=== PATIENT | male | born 1960 | race Caucasian/White ===

== ENCOUNTER 2016-06-27 18:33 | Emergency (ER) | payer OTHER ==
[~2016-06-27] VITALS: Ht 180.3 cm; Wt 72.0 kg
[~2016-06-27 18:33] MED LIST: OMEP20TA PO
[2016-06-27 18:35] VITALS: BP 106/56; PULSE 90; RESP 18; TEMP 98.2; O2SAT 95
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
[2016-06-27] MEDS ORDERED: TETANUS/DIPHTHERIA TOXOID ADULT 0.5 ML VIAL IM ONE (19:30)
[2016-06-27] MEDS ORDERED: VENTAER INH (20:15)
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
[2016-06-27] MEDS ORDERED: IBUP-232 PO (21:04)
== END 2016-06-27 21:32 | disposition home or self-care (01) ==
LOC: NEPE 18:33
DX: S09.90XA Unspecified injury of head, initial encounter (principal); S40.021A Contusion of right upper arm, initial encounter; S20.219A Contusion of unspecified front wall of thorax, initial encounter; S20.229A Contusion of unspecified back wall of thorax, initial encounter; S30.0XXA Contusion of lower back and pelvis, initial encounter; S80.02XA Contusion of left knee, initial encounter; S00.81XA Abrasion of other part of head, initial encounter; F17.200 Nicotine dependence, unspecified, uncomplicated; Y04.2XXA Assault by strike against or bumped into by another person, initial encounter; Z23 Encounter for immunization; Z86.59 Personal history of other mental and behavioral disorders; Z86.79 Personal history of other diseases of the circulatory system; Z87.09 Personal history of other diseases of the respiratory system
CPT/HCPCS: 70450; 71010; 72072; 72100; 73060; 73560; 90471; 90714

== ENCOUNTER 2016-09-12 21:47 | Emergency (ER) | payer OTHER ==
[~2016-09-12] VITALS: Ht 180.3 cm; Wt 65.0 kg
[~2016-09-12 21:47] MED LIST changes: +IBUP-232 PO; +VENTAER INH
[2016-09-12 22:14] VITALS: BP 145/85; PULSE 98; RESP 16; TEMP 98.5; O2SAT 97
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
[2016-09-12 23:18] VITALS: BP 117/76; PULSE 88; RESP 20; O2SAT 99
[2016-09-12 23:38] LABS: AUTOMATED NEUTROPHIL # 3.7 TH/MM3 (1.8-7.7); BASOPHIL % 0.7 % (0.0-2.0); EOSINOPHIL # 0.1 TH/MM3 (0-0.4); EOSINOPHIL % 1.2 % (0.0-4.0); HEMATOCRIT 43.8 % (39.0-51.0); HEMO FLAGS DIFF FINAL; LYMPH % 36.4 % (9.0-44.0); LYMPHOCYTE # 2.6 TH/MM3 (1.0-4.8); MEAN CORPUSCULAR HEMOGLOBIN 31.1 PG (27.0-34.0); MEAN CORPUSCULAR HGB CONC 33.8 % (32.0-36.0); MONO % 9.8 % (0.0-8.0); NEUT % 51.9 % (16.0-70.0); PLATELET COUNT 214 TH/MM3 (150-450); RED BLOOD COUNT 4.76 MIL/MM3 (4.50-5.90); RED CELL DISTRIBUTION WIDTH 13.9 % (11.6-17.2); WHITE BLOOD COUNT 7.2 TH/MM3 (4.0-11.0)
[2016-09-12 23:44] LABS: ANION GAP 9 MEQ/L (5-15); AST (GOT) 28 U/L (15-37); BICARBONATE 25.7 MEQ/L (21.0-32.0); BLOOD UREA NITROGEN 9 MG/DL (7-18); CHLORIDE 104 MEQ/L (98-107); GLOMERULAR FILTRATION RATE 92 ML/MIN (>89); POTASSIUM 3.7 MEQ/L (3.5-5.1); SODIUM (NA) 139 MEQ/L (136-145)
[2016-09-12 23:45] LABS: ALT (GPT) 38 U/L (12-78)
[2016-09-12 23:47] LABS: ALKALINE PHOSPHATASE 75 U/L (45-117); TOTAL BILIRUBIN ADULT 0.7 MG/DL (0.2-1.0)
[2016-09-13 00:37] LABS: AMPHETAMINE, URINE NEG (NEG); BARBITURATES, URINE NEG (NEG); COCAINE, URINE NEG (NEG)
[2016-09-13 03:23] VITALS: BP 112/70; PULSE 80; RESP 20; O2SAT 98
[2016-09-13 07:14] VITALS: BP 130/69; PULSE 71; RESP 18; O2SAT 98
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
== END 2016-09-13 10:38 | disposition home or self-care (01) ==
LOC: NEPD 21:47
DX: F10.229 Alcohol dependence with intoxication, unspecified (principal); Y90.6 Blood alcohol level of 120-199 mg/100 ml; F31.9 Bipolar disorder, unspecified; J44.9 Chronic obstructive pulmonary disease, unspecified; Z59.0 Homelessness; F17.210 Nicotine dependence, cigarettes, uncomplicated
CPT/HCPCS: 80053; 80307; 85025; 99284

== ENCOUNTER 2017-03-21 12:30 | Emergency (ER) | payer OTHER ==
[~2017-03-21] VITALS: Ht 180.3 cm; Wt 75.0 kg
[~2017-03-21 12:30] MED LIST changes: -OMEP20TA PO; +OMEP20TA93 PO
[2017-03-21 12:40] VITALS: BP 144/79; PULSE 83; RESP 15; TEMP 98.7; O2SAT 98
[2017-03-21 13:13] LABS: BASOPHIL # 0.1 TH/MM3 (0-0.2); BASOPHIL % 0.8 % (0.0-2.0); EOSINOPHIL % 0.7 % (0.0-4.0); HEMOGLOBIN 15.7 GM/DL (13.0-17.0); LYMPH % 29.1 % (9.0-44.0); LYMPHOCYTE # 2.1 TH/MM3 (1.0-4.8); MEAN CELL VOLUME 95.4 FL (80.0-100.0); MEAN CORPUSCULAR HEMOGLOBIN 32.5 PG (27.0-34.0); MEAN CORPUSCULAR HGB CONC 34.1 % (32.0-36.0); MONO % 13.9 % (0.0-8.0); NEUT % 55.5 % (16.0-70.0); PLATELET COUNT 256 TH/MM3 (150-450); RED BLOOD COUNT 4.82 MIL/MM3 (4.50-5.90); RED CELL DISTRIBUTION WIDTH 14.1 % (11.6-17.2); WHITE BLOOD COUNT 7.1 TH/MM3 (4.0-11.0)
[2017-03-21] MEDS ORDERED: RESP: ALBUTEROL 2.5 MG/IPRATROPIUM 0.5 MG NEB (SCH) INH ONE (13:30)
[2017-03-21 13:47] LABS: ALBUMIN 3.4 GM/DL (3.4-5.0); ALKALINE PHOSPHATASE 69 U/L (45-117); ALT (GPT) 40 U/L (12-78); AST (GOT) 28 U/L (15-37); BICARBONATE 25.9 MEQ/L (21.0-32.0); BLOOD UREA NITROGEN 6 MG/DL (7-18); CALCIUM 8.6 MG/DL (8.5-10.1); CHLORIDE 111 MEQ/L (98-107); CREATININE 0.69 MG/DL (0.60-1.30); GLOMERULAR FILTRATION RATE 119 ML/MIN (>89); GLUCOSE,RANDOM 99 MG/DL (74-106); SODIUM (NA) 144 MEQ/L (136-145); TOTAL BILIRUBIN ADULT 0.4 MG/DL (0.2-1.0); TOTAL PROTEIN 7.7 GM/DL (6.4-8.2)
[2017-03-21 13:49] LABS: ACETAMINOPHEN LESS THAN 2.0 MCG/ML (10.0-30.0)
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
[2017-03-21 17:24] VITALS: BP 101/72; PULSE 94; RESP 16; O2SAT 100
[2017-03-21 21:54] VITALS: BP 101/60
== END 2017-03-21 22:50 | disposition home or self-care (01) ==
LOC: NEPE 12:30
DX: F10.129 Alcohol abuse with intoxication, unspecified (principal); J44.9 Chronic obstructive pulmonary disease, unspecified; F17.200 Nicotine dependence, unspecified, uncomplicated; Y90.8 Blood alcohol level of 240 mg/100 ml or more
CPT/HCPCS: 80053; 80307; 85025; 99284

== ENCOUNTER 2017-04-30 07:36 | Emergency (ER) | payer OTHER ==
[~2017-04-30] VITALS: Ht 165.1 cm; Wt 70.0 kg
[2017-04-30 07:42] VITALS: BP 126/87; PULSE 84; RESP 16; TEMP 97.7; O2SAT 95
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
[2017-04-30 09:37] LABS: AUTOMATED NEUTROPHIL # 4.2 TH/MM3 (1.8-7.7); BASOPHIL % 0.4 % (0.0-2.0); EOSINOPHIL # 0.1 TH/MM3 (0-0.4); EOSINOPHIL % 1.4 % (0.0-4.0); HEMATOCRIT 43.9 % (39.0-51.0); HEMOGLOBIN 15.2 GM/DL (13.0-17.0); LYMPHOCYTE # 2.2 TH/MM3 (1.0-4.8); MEAN CELL VOLUME 92.4 FL (80.0-100.0); MEAN CORPUSCULAR HEMOGLOBIN 32.1 PG (27.0-34.0); MEAN CORPUSCULAR HGB CONC 34.7 % (32.0-36.0); MEAN PLATELET VOLUME 6.8 FL (7.0-11.0); MONO % 7.6 % (0.0-8.0); MONOCYTE # 0.5 TH/MM3 (0-0.9); NEUT % 59.6 % (16.0-70.0); PLATELET COUNT 272 TH/MM3 (150-450); RED BLOOD COUNT 4.75 MIL/MM3 (4.50-5.90); RED CELL DISTRIBUTION WIDTH 13.7 % (11.6-17.2); WHITE BLOOD COUNT 7.1 TH/MM3 (4.0-11.0)
[2017-04-30 09:59] LABS: ALBUMIN 3.3 GM/DL (3.4-5.0); ALT (GPT) 26 U/L (12-78); AST (GOT) 32 U/L (15-37); BICARBONATE 26.5 MEQ/L (21.0-32.0); BLOOD UREA NITROGEN 6 MG/DL (7-18); CALCIUM 8.3 MG/DL (8.5-10.1); CHLORIDE 110 MEQ/L (98-107); CREATININE 0.74 MG/DL (0.60-1.30); GLOMERULAR FILTRATION RATE 109 ML/MIN (>89); GLUCOSE,RANDOM 86 MG/DL (74-106); SODIUM (NA) 144 MEQ/L (136-145)
[2017-04-30 10:09] LABS: ALKALINE PHOSPHATASE 72 U/L (45-117); TOTAL BILIRUBIN ADULT 0.3 MG/DL (0.2-1.0); TOTAL PROTEIN 7.6 GM/DL (6.4-8.2)
[2017-04-30 11:25] VITALS: BP 150/59; PULSE 83; RESP 18; O2SAT 95
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
--- NOTE | 2017-04-30 16:56 | PD ---
Physical Exam Time Seen by Provider: 16:51 CANDIDA Perez has evaluated the patient, but to Hernandez act and clear patient for discharge. Data Data Last Documented VS Vital Signs Date Time Temp Pulse Resp B/P (MAP) Pulse Ox O2 Delivery O2 Flow Rate FiO2 04/30/17 11:25 83 18 150/59 (89) 95 Room Air 04/30/17 07:42 97.7 Orders Orders Complete Blood Count With Diff (04/30/17 09:04) Comprehensive Metabolic Panel (04/30/17 09:04) Thyroid Stimulating Hormone (04/30/17 09:04) Iv Access Insert/Monitor (04/30/17 09:04) Psych Screen (04/30/17 09:04) Drug Screen, Random Urine (04/30/17 09:04) Alcohol (Ethanol) (04/30/17 09:04) Diet Regular Basic (04/30/17 Lunch) Diet Regular Basic (04/30/17 Dinner) Ed Discharge Order (04/30/17 16:56) Labs Laboratory Tests Test 04/30/17 09:20 White Blood Count 7.1 TH/MM3 Red Blood Count 4.75 MIL/MM3 Hemoglobin 15.2 GM/DL Hematocrit 43.9 % Mean Corpuscular Volume 92.4 FL Mean Corpuscular Hemoglobin 32.1 PG Mean Corpuscular Hemoglobin Concent 34.7 % Red Cell Distribution Width 13.7 % Platelet Count 272 TH/MM3 Mean Platelet Volume 6.8 FL Neutrophils (%) (Auto) 59.6 % Lymphocytes (%) (Auto) 31.0 % Monocytes (%) (Auto) 7.6 % Eosinophils (%) (Auto) 1.4 % Basophils (%) (Auto) 0.4 % Neutrophils # (Auto) 4.2 TH/MM3 Lymphocytes # (Auto) 2.2 TH/MM3 Monocytes # (Auto) 0.5 TH/MM3 Eosinophils # (Auto) 0.1 TH/MM3 Basophils # (Auto) 0.0 TH/MM3 CBC Comment DIFF FINAL Differential Comment Blood Urea Nitrogen 6 MG/DL Creatinine 0.74 MG/DL Random Glucose 86 MG/DL Total Protein 7.6 GM/DL Albumin 3.3 GM/DL Calcium Level 8.3 MG/DL Alkaline Phosphatase 72 U/L Aspartate Amino Transf (AST/SGOT) 32 U/L Alanine Aminotransferase (ALT/SGPT) 26 U/L Total Bilirubin 0.3 MG/DL Sodium Level 144 MEQ/L Potassium Level 3.7 MEQ/L Chloride Level 110 MEQ/L Carbon Dioxide Level 26.5 MEQ/L Anion Gap 8 MEQ/L Estimat Glomerular Filtration Rate 109 ML/MIN Thyroid Stimulating Hormone 3rd Gen 0.576 uIU/ML Ethyl Alcohol Level 322 MG/DL MDM Supervised Visit with ANABELLA: No Narrative Course CANDIDA Coles has evaluated the patient, but to David gamez and clear patient for discharge. Patient contracts safety. Denies suicidal or homicidal ideations. Patient will be provided community resource packet to ANGELINE for follow-up. Has friends and family for support. Patient was medically cleared by alternate provider prior to psych screening. Patient has been evaluated by psychiatry and and is now cleared for discharge. Diagnosis Primary Impression: Homicidal ideations Additional Impression: Alcohol intoxication Qualified Codes: F10.929 - Alcohol use, unspecified with intoxication, unspecified Referrals: MEAGHAN (Out patient) [facility] Primary Care Physician Psychiatrist [facility] Patient Instructions: Abuse of Alcohol (ED), Alcohol Dependence (ED), Alcohol Intoxication (ED), General Instructions Additional Instruction: Contract safety to your self and others Stop drinking alcohol Follow-up with psychiatry Follow-up with primary care provider Follow-up with Manish Perea Return to the emergency department immediately with worsening of symptoms Med/Other Pt SpecificInfo: No Change to Meds, No Meds Exist/No RX given Scripts No Active Prescriptions or Reported Meds Disposition: 01 DISCHARGE HOME Condition: Stable Nancy Vogel Apr 30, 2017 16:56
== END 2017-04-30 19:23 | disposition home or self-care (01) ==
LOC: NEPC 07:36 → NEPJ 19:23
DX: R45.850 Homicidal ideations (principal); F10.129 Alcohol abuse with intoxication, unspecified; F17.210 Nicotine dependence, cigarettes, uncomplicated; F90.9 Attention-deficit hyperactivity disorder, unspecified type; F31.9 Bipolar disorder, unspecified; J44.9 Chronic obstructive pulmonary disease, unspecified; Y90.8 Blood alcohol level of 240 mg/100 ml or more; Z59.0 Homelessness
CPT/HCPCS: 80053; 80307; 84443; 85025; 99283

== ENCOUNTER 2017-05-16 15:18 | Emergency (ER) | payer OTHER ==
[~2017-05-16] VITALS: Ht 167.6 cm; Wt 65.0 kg
[2017-05-16 15:45] VITALS: BP 113/64; PULSE 97; RESP 16; O2SAT 97
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
== END 2017-05-16 18:57 | disposition home or self-care (01) ==
LOC: NEPD 15:18
DX: K52.9 Noninfective gastroenteritis and colitis, unspecified (principal); F10.920 Alcohol use, unspecified with intoxication, uncomplicated; F31.9 Bipolar disorder, unspecified; F41.8 Other specified anxiety disorders; J44.9 Chronic obstructive pulmonary disease, unspecified; F17.210 Nicotine dependence, cigarettes, uncomplicated
CPT/HCPCS: 99281

== ENCOUNTER 2017-05-28 22:11 | Emergency (ER) | payer OTHER ==
[~2017-05-28] VITALS: Ht 177.8 cm; Wt 60.0 kg
[2017-05-28 22:21] VITALS: BP 105/62; PULSE 81; RESP 18; TEMP 97.7; O2SAT 100
== END 2017-05-28 23:42 | disposition left against medical advice (07) ==
LOC: PHED 22:11
DX: R11.0 Nausea (principal); Z53.21 Procedure and treatment not carried out due to patient leaving prior to being seen by health care provider
CPT/HCPCS: 99281

== ENCOUNTER 2017-06-16 19:41 | Emergency (ER) | payer OTHER ==
[2017-06-16 20:12] VITALS: BP 116/72; PULSE 89; RESP 16; TEMP 98.3; O2SAT 97
[2017-06-16 21:32] LABS: AUTOMATED NEUTROPHIL # 4.3 TH/MM3 (1.8-7.7); BASOPHIL % 0.2 % (0.0-2.0); EOSINOPHIL # 0.1 TH/MM3 (0-0.4); EOSINOPHIL % 0.8 % (0.0-4.0); HEMATOCRIT 46.6 % (39.0-51.0); HEMOGLOBIN 15.6 GM/DL (13.0-17.0); LYMPH % 32.2 % (9.0-44.0); LYMPHOCYTE # 2.4 TH/MM3 (1.0-4.8); MEAN CELL VOLUME 92.8 FL (80.0-100.0); MEAN CORPUSCULAR HGB CONC 33.4 % (32.0-36.0); MEAN PLATELET VOLUME 7.5 FL (7.0-11.0); MONO % 9.7 % (0.0-8.0); MONOCYTE # 0.7 TH/MM3 (0-0.9); NEUT % 57.1 % (16.0-70.0); PLATELET COUNT 198 TH/MM3 (150-450); RED BLOOD COUNT 5.02 MIL/MM3 (4.50-5.90); RED CELL DISTRIBUTION WIDTH 14.3 % (11.6-17.2); WHITE BLOOD COUNT 7.5 TH/MM3 (4.0-11.0)
[2017-06-16 21:44] LABS: ALBUMIN 4.1 GM/DL (3.4-5.0); AST (GOT) 25 U/L (15-37); BICARBONATE 24.9 MEQ/L (21.0-32.0); BLOOD UREA NITROGEN 16 MG/DL (7-18); CALCIUM 8.6 MG/DL (8.5-10.1); CHLORIDE 104 MEQ/L (98-107); CREATININE 1.02 MG/DL (0.60-1.30); GLOMERULAR FILTRATION RATE 76 ML/MIN (>89); GLUCOSE,RANDOM 92 MG/DL (74-106); SODIUM (NA) 140 MEQ/L (136-145)
[2017-06-16 21:45] LABS: ALT (GPT) 34 U/L (12-78)
[2017-06-16 21:47] LABS: ALKALINE PHOSPHATASE 79 U/L (45-117); TOTAL BILIRUBIN ADULT 0.6 MG/DL (0.2-1.0); TOTAL PROTEIN 8.5 GM/DL (6.4-8.2)
[2017-06-17 00:56] VITALS: BP 134/80; PULSE 86; RESP 14; O2SAT 99
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
[2017-06-17] MEDS ORDERED: LIDOCAINE VISCOUS 2% SOLN 15 ML UDC PO ONE (01:30)
[2017-06-17] MEDS ORDERED: ALUMINUM/MAGNESIUM/SIMETH 30 ML CUP PO ONE (01:30)
== END 2017-06-17 01:46 | disposition home or self-care (01) ==
LOC: NEPC 19:41
DX: R10.13 Epigastric pain (principal); R11.0 Nausea; F17.200 Nicotine dependence, unspecified, uncomplicated
CPT/HCPCS: 80053; 83690; 85025; 99283

== ENCOUNTER 2017-07-11 20:07 | Observation (INO) | payer OTHER ==
[~2017-07-11] VITALS: Ht 182.9 cm; Wt 70.5 kg
[2017-07-11 20:11] VITALS: BP 129/73; PULSE 89; RESP 16; TEMP 98.1; O2SAT 98
[2017-07-11 23:12] VITALS: RESP 15; O2SAT 100
[2017-07-11 23:13] VITALS: BP 119/71; PULSE 83; RESP 15; O2SAT 100
[2017-07-11 23:14] VITALS: BP 109/72; PULSE 84; RESP 15; O2SAT 99
[2017-07-11] MEDS ORDERED: RESP: ALBUTEROL 2.5 MG/IPRATROPIUM 0.5 MG NEB (SCH) NEB ONE (23:15)
[2017-07-11] MEDS ORDERED: SODIUM CHLORIDE 0.9% FLUSH 10 ML FLUSH IVF PRN (23:15)
[2017-07-11] MEDS ORDERED: ASPIRIN 81 MG CHEW TAB PO ONE (23:15)
--- NOTE | 2017-07-11 23:33 | RADRPT ---
EXAM DATE/TIME: 07/11/2017 23:18 [facility] COMPARISON: CHEST SINGLE AP, June 27, 2016, 19:45. INDICATIONS : Chest pain. MEDICAL HISTORY : Chronic obstructive pulmonary disease. SURGICAL HISTORY : None. ENCOUNTER: Initial ACUITY: 1 day PAIN SCORE: 7/10 LOCATION: Bilateral chest FINDINGS: Single AP view of the chest. The lungs are clear. Cardiomediastinal silhouette within normal limits. No evidence of pleural effusion or pneumothorax. CONCLUSION: No acute cardiopulmonary disease identified. Shay Hough MD on July 11, 2017 at 23:31 Board Certified Radiologist. This report was verified electronically.
[2017-07-11 23:39] LABS: AUTOMATED NEUTROPHIL # 5.6 TH/MM3 (1.8-7.7); BASOPHIL % 0.4 % (0.0-2.0); EOSINOPHIL # 0.1 TH/MM3 (0-0.4); EOSINOPHIL % 1.3 % (0.0-4.0); HEMOGLOBIN 14.2 GM/DL (13.0-17.0); LYMPH % 28.8 % (9.0-44.0); LYMPHOCYTE # 2.6 TH/MM3 (1.0-4.8); MEAN CELL VOLUME 89.7 FL (80.0-100.0); MEAN CORPUSCULAR HEMOGLOBIN 31.1 PG (27.0-34.0); MEAN CORPUSCULAR HGB CONC 34.7 % (32.0-36.0); MEAN PLATELET VOLUME 7.6 FL (7.0-11.0); MONO % 7.3 % (0.0-8.0); MONOCYTE # 0.7 TH/MM3 (0-0.9); NEUT % 62.2 % (16.0-70.0); PLATELET COUNT 198 TH/MM3 (150-450); RED BLOOD COUNT 4.58 MIL/MM3 (4.50-5.90); RED CELL DISTRIBUTION WIDTH 13.7 % (11.6-17.2)
[2017-07-11 23:42] LABS: ALBUMIN 3.7 GM/DL (3.4-5.0); ALT (GPT) 28 U/L (12-78); AST (GOT) 32 U/L (15-37); BICARBONATE 24.7 MEQ/L (21.0-32.0); BLOOD UREA NITROGEN 11 MG/DL (7-18); CALCIUM 8.4 MG/DL (8.5-10.1); CHLORIDE 109 MEQ/L (98-107); CREATININE 0.67 MG/DL (0.60-1.30); GLOMERULAR FILTRATION RATE 123 ML/MIN (>89); GLUCOSE,RANDOM 85 MG/DL (74-106); SODIUM (NA) 144 MEQ/L (136-145)
[2017-07-11 23:46] LABS: ALKALINE PHOSPHATASE 63 U/L (45-117); TOTAL BILIRUBIN ADULT 0.6 MG/DL (0.2-1.0); TOTAL PROTEIN 7.5 GM/DL (6.4-8.2); TROPONIN I LESS THAN 0.02 NG/ML (0.02-0.05)
[2017-07-12] VITALS (9 sets, daily range): BP systolic 97–129; BP diastolic 60–83; PULSE 60–78; RESP 16–20; TEMP 98.1–99.2; O2SAT 96–99
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
[2017-07-12] MEDS ORDERED: IOHEXOL 350 MG/ML 50 ML BTL (for Cath Lab) OTHER ONE (00:38)
[2017-07-12] MEDS ORDERED: SODIUM CHLORIDE 0.9% FLUSH 10 ML FLUSH IV FLUSH PRN (00:45)
[2017-07-12 02:59] LABS: TROPONIN I LESS THAN 0.02 NG/ML (0.02-0.05)
[2017-07-12 05:49] LABS: TROPONIN I LESS THAN 0.02 NG/ML (0.02-0.05)
[2017-07-12] MEDS ORDERED: ONDANSETRON HCL 4 MG/2 ML VIAL IV PUSH PRN (07:45)
[2017-07-12] MEDS ORDERED: ACETAMINOPHEN 500 MG CPLT PO PRN (07:45)
[2017-07-12] MEDS ORDERED: NITROGLYCERIN 0.4 MG SL 25 TABS/BTL SL PRN (07:45)
--- NOTE | 2017-07-12 10:19 | HHI.HP ---
HPI Primary Care Physician No Primary Care Physician Chief Complaint Chest pain History of Present Illness 56-year-old male with history of COPD, depression, and current smoker presents the emergency room for further evaluation of chest pain. Onset yesterday afternoon 3:30 PM. Location substernal. Characterized as a sudden "sharp knife " steady pain. No radiation. Associated symptoms including nausea, vomiting nonbloody emesis, dyspnea, and diaphoresis. Endorses her to take a deep breath. Duration "hours." He is unable to recall how long he experienced chest discomfort. Reports falling asleep and waking up chest pain-free. No no precipitating or relieving factors. Similar pain in the past, reports multiple cardiac testing in the past. Currently chest pain-free. Review of Systems General: No fatigue,weakness, fever, chills, recent illness, or change in appetite. Has been in his general state of health. HEENT: No MATHEW, no vision changes, no nasal congestion or drainage, no dysphasia CV: As stated above. No current chest pain or pressure. RESP: No SOB, cough, wheeze, or recent upper respiratory infection. History of COPD, current smoker. GI: No nausea, vomiting, bowel changes, diarrhea, constipation, pain, distention , melena, or blood in the stool. No unintentional weight gain or weight loss. : No dysuria, urgency, frequency EXT: No lower leg edema, no paraesthesias MS: No discomfort, injury, trauma, or change in ROM NEURO: No change in memory, difficulty with balance, LOC, motor/sensory deficits PSYCH: History of depression, no current depression or anxiety, no suicidal ideation SKIN: No rashes, no concerning lesions Past Family Social History Allergies: Coded Allergies: No Known Allergies (Unverified Adverse Reaction, Unknown, 07/11/17) Past Medical History COPD, bipolar, depression Past Surgical History Hernia repair Reported Medications Reported Meds & Active Scripts Active No Active Prescriptions or Reported Medications Active Ordered Medications Current Medications Medications (Trade) Dose Ordered Sig/Geovanni Route Start Time Stop Time Status Last Admin (NS Flush) 2 ml UNSCH PRN IV FLUSH 07/12/17 00:45 (NS Flush) 2 ml BID IV FLUSH 07/12/17 09:00 (Tylenol) 500 mg Q4H PRN PO 07/12/17 07:45 (Zofran Inj) 4 mg Q6H PRN IV PUSH 07/12/17 07:45 (Nitrostat Sl) 0.4 mg Q5M PRN SL 07/12/17 07:45 (Aspirin) 325 mg DAILY PO 07/12/17 09:00 Family History Noncontributory for early onset cardiovascular disease. Social History No known coronary artery disease, hypertension, hyperlipidemia, or diabetes. Current smoker, [id number] history. Drinks8 beers daily. Denies any illegal drug use. Homeless. Single. Reports family lives in [place]. Past cardiac testing Lexiscan 2017 [place], [place] reported to be normal. Sounds as though Nuclear treadmill testing attempting, however changed due to inability to walk. 06/07/15 Lexiscan-no reversible defect seen to suggest acute ischemia. 2014 Cardiac catheterization does not recall physician or name of hospital where catheterization completed. Completed in [place], [place] and reported to be "normal." Physical Exam Vital Signs Vital Signs Date Time Temp Pulse Resp B/P (MAP) Pulse Ox O2 Delivery O2 Flow Rate FiO2 07/12/17 08:24 98.2 73 18 129/83 (98) 98 07/12/17 08:02 98 21 07/12/17 04:04 78 07/12/17 02:02 98.1 76 16 97/60 (72) 96 07/12/17 01:37 07/11/17 23:14 84 15 109/72 (84) 99 Room Air 07/11/17 23:13 83 15 119/71 (87) 100 Room Air 07/11/17 23:12 15 100 Room Air 07/11/17 23:12 100 Room Air 07/11/17 20:11 98.1 89 16 129/73 (91) 98 Physical Exam GENERAL: Alert WN, WD, NAD, pleasant, male who appears older than stated age. HEAD: NC, AT NECK: Supple, no masses, trachea midline CV: RRR, without murmur, rub, gallop, no JVD, S1-S2 no S3-S4. No carotid or femoral bruits. Chest wall nontender with palpation. RESP: Diminished lungs throughout bilateral, no crackles, wheeze, or rhonchi, symmetrical chest rise, nonlabored, able to speak in full sentences ABD: Soft, NT, ND, no masses, positive bowel tones EXT: Pulses +2-4, no dependent edema MS: Normal tone -4 extremities, no obvious deformities, full range of motion NEURO: CN II through CN XII grossly intact, motor strength 5/5 PSYCH: A+O -3, pleasant affect, appropriate speech, mood, insight and judgment SKIN: Normal turgor, normal texture, no lesions, no rashes, even hair distribution Laboratory Laboratory Tests Test 07/11/17 23:15 07/12/17 02:05 07/12/17 05:19 White Blood Count 9.0 Red Blood Count 4.58 Hemoglobin 14.2 Hematocrit 41.0 Mean Corpuscular Volume 89.7 Mean Corpuscular Hemoglobin 31.1 Mean Corpuscular Hemoglobin Concent 34.7 Red Cell Distribution Width 13.7 Platelet Count 198 Mean Platelet Volume 7.6 Neutrophils (%) (Auto) 62.2 Lymphocytes (%) (Auto) 28.8 Monocytes (%) (Auto) 7.3 Eosinophils (%) (Auto) 1.3 Basophils (%) (Auto) 0.4 Neutrophils # (Auto) 5.6 Lymphocytes # (Auto) 2.6 Monocytes # (Auto) 0.7 Eosinophils # (Auto) 0.1 Basophils # (Auto) 0.0 CBC Comment DIFF FINAL Differential Comment Prothrombin Time 10.0 Prothromb Time International Ratio 1.0 Activated Partial Thromboplast Time 24.5 Blood Urea Nitrogen 11 Creatinine 0.67 Random Glucose 85 Total Protein 7.5 Albumin 3.7 Calcium Level 8.4 Alkaline Phosphatase 63 Aspartate Amino Transf (AST/SGOT) 32 Alanine Aminotransferase (ALT/SGPT) 28 Total Bilirubin 0.6 Sodium Level 144 Potassium Level 3.6 Chloride Level 109 Carbon Dioxide Level 24.7 Anion Gap 10 Estimat Glomerular Filtration Rate 123 Total Creatine Kinase 178 160 144 Creatine Kinase MB 2.4 2.3 2.1 Troponin I LESS THAN 0.02 LESS THAN 0.02 LESS THAN 0.02 Result Diagram: 07/11/17 2315 07/11/172314 Imaging Last 48 hours Impressions Chest X-Ray 07/11/177 Signed Impressions: Service Date/Time: Tuesday, July 11, 2017 23:18 - CONCLUSION: No acute cardiopulmonary disease identified. Shay Hough MD Course EKG NSR, no st t segment changes Cappopeye VTE Risk Assessment Caprinkunal VTE Risk Assessment: No/Low Risk (score <= 1) Caprini Risk Assessment Model Point Value = 1 Point Value = 2 Point Value = 3 Point Value = 5 Age 41-60 Minor surgery BMI > 25 kg/m2 Swollen legs Varicose veins or History of unexplained or recurrent spontaneous Oral contraceptives or hormone replacement Sepsis (< 1 month) Serious lung disease, including pneumonia (< 1 month) Abnormal pulmonary function Acute myocardial infarction Congestive heart failure (< 1 month) History of inflammatory bowel disease Medical patient at bed rest Age 61-74 Arthroscopic surgery Major open surgery (> 45 min) Laparoscopic surgery (> 45 min) Malignancy Confined to bed (> 72 hours) Immobilizing plaster cast Central venous access Age >= 75 History of VTE Family history of VTE Factor V Leiden Prothrombin [id number] Lupus anticoagulant Anticardiolipin antibodies Elevated serum homocysteine Heparin-induced thrombocytopenia Other congenital or acquired thrombophilia Stroke (< 1 month) Elective arthroplasty Hip, pelvis, or leg fracture Acute spinal cord injury (< 1 month) Prophylaxis Regimen Total Risk Factor Score Risk Level Prophylaxis Regimen 0-1 Low Early ambulation 2 Moderate Order ONE of the following: *Sequential Compression Device (SCD) *Heparin 5000 units SQ BID 3-4 Higher Order ONE of the following medications: *Heparin 5000 units SQ TID *Enoxaparin/Lovenox 40 mg SQ daily (WT < 150 kg, CrCl > 30 mL/min) *Enoxaparin/Lovenox 30 mg SQ daily (WT < 150 kg, CrCl > 10-29 mL/min) *Enoxaparin/Lovenox 30 mg SQ BID (WT < 150 kg, CrCl > 30 mL/min) AND/OR *Sequential Compression Device (SCD) 5 or more Highest Order ONE of the following medications: *Heparin 5000 units SQ TID (Preferred with Epidurals) *Enoxaparin/Lovenox 40 mg SQ daily (WT < 150 kg, CrCl > 30 mL/min) *Enoxaparin/Lovenox 30 mg SQ daily (WT < 150 kg, CrCl > 10-29 mL/min) *Enoxaparin/Lovenox 30 mg SQ BID (WT < 150 kg, CrCl > 30 mL/min) AND *Sequential Compression Device (SCD) Assessment and Plan Assessment and Plan #1 Chest pain-no chest pain center. Ruled out with 3 sets of EKGs, cardiac enzymes, monitor on telemetry. Seen and evaluated by Dr. Leroy Griggs. Discomfort atypical however due to risk factors of smoking, age, and uncertainty of past coronary findings will proceed with chemical testing this morning. #2 Tobacco use-strongly encouraged and stressed importance of tobacco cessation. Instructed to quit smoking. Ingrid Segovia Jul 12, 2017 10:19
[2017-07-12] MEDS ORDERED: RESP: ALBUTEROL 2.5 MG/3 ML NEB (PRN) NEB (12:00)
[2017-07-12] MEDS: ASPIRIN 325 MG TAB PO SCH (12:24)
[2017-07-12] MEDS: SODIUM CHLORIDE 0.9% FLUSH 10 ML FLUSH IV FLUSH SCH ×2 (12:24→22:13)
[2017-07-12] MEDS ORDERED: REGADENOSON INJ 0.4 MG/5 ML SYR ONE (13:17)
--- NOTE | 2017-07-12 15:33 | RADRPT ---
EXAM DATE/TIME: 07/12/2017 13:13 [facility] COMPARISON: No previous studies available for comparison. INDICATIONS : Mid chest pain with nausea for one day. Angina. DOSE: 25.5 mCi Tc99m Myoview at stress. 8.6 mCi Tc99m Myoview at rest. 0.4 mg Lexiscan STRESS SYMPTOMS: Shortness of breath and flush. EJECTION FRACTION: 60% MEDICAL HISTORY : Chronic obstructive pulmonary disease. SURGICAL HISTORY : Inguinal hernia repair. ENCOUNTER: Initial ACUITY: 1 day PAIN SCALE: 5/10 LOCATION: Midsternal chest TECHNIQUE: The patient underwent pharmacologic stress with infusion of prescribed dose. Continuous ECG tracing was monitored during stress. Gated SPECT imaging was performed after stress and conventional SPECT i maging was performed at rest. The examination was performed on a SPECT/CT scanner, both attenuation and non-corrected datasets were reviewed. FINDINGS: DISTRIBUTION: The maximum perfused segment at stress is in the anterior wall. PERFUSION STUDY: The pattern of perfusion demonstrates a small area of reversibility in the septum. GATED STUDY: There is intact wall motion and thickening without hypokinetic or dyskinetic segments. CONCLUSION: 1. Small area of reversibility in the septum which may represent a small area of ischemia. 2. Normal wall motion with ejection fraction 60%. RISK CATEGORY: Intermediate (1-3% Annual Mortality Rate) Andrews George MD on July 12, 2017 at 15:26 Board Certified Radiologist. This report was verified electronically.
[2017-07-12] MEDS ORDERED: LORazepam 2 MG/ML VIAL IV PUSH PRN ×4 (16:00)
[2017-07-12] MEDS ORDERED: FLUMAZENIL 0.5 MG/5 ML VIAL IV PUSH PRN (16:00)
[2017-07-12] MEDS ORDERED: LORazepam 2 MG TAB PO PRN (16:00)
[2017-07-12] MEDS ORDERED: LORazepam 1 MG TAB PO PRN (16:00)
[2017-07-12] MEDS ORDERED: PILL SPLITTER OTHER PRN (16:30)
--- NOTE | 2017-07-12 16:35 | TR ---
Date Performed: 07/12/2017 Time Performed: 13:34:53 DOCTOR: Leroy Griggs DRUG LIST: CLINICAL HISTORY: ANGINA REASON FOR TEST: Angina REASON FOR ENDING: OBSERVATION: CONCLUSION: Lexiscan stress test was performed under standard four minute protocol. Radionuclid e was injected one minute prior to ending the test. No electrocardiographic abormalities were present to suggest ischemia. Nuclear imaging and interpretation are pending. COMMENTS:
--- NOTE | 2017-07-12 16:42 | EKG ---
Date Performed: 07/12/2017 Time Performed: 05:22:04 PTAGE: 56 years EKG: Sinus rhythm WITH OCCASIONAL ECTOPIC PREMATURE COMPLEXES BORDERLINE ECG PREVIOUS TRACING : 07/12/2017 02.11 Since previous tracing, no significant change noted DOCTOR: Leroy Griggs Interpretating Date/Time 07/12/2017 16:41:51
--- NOTE | 2017-07-12 16:43 | EKG ---
Date Performed: 07/12/2017 Time Performed: 02:11:37 PTAGE: 56 years EKG: Sinus rhythm NORMAL ECG PREVIOUS TRACING : 07/11/2017 23.02 Since previous tracing, no significant change noted DOCTOR: Leroy Griggs Interpretating Date/Time 07/12/2017 16:43:02
--- NOTE | 2017-07-12 16:47 | EKG ---
Date Performed: 07/11/2017 Time Performed: 23:02:56 PTAGE: 56 years EKG: Sinus rhythm NORMAL ECG PREVIOUS TRACING : 04/03/2016 22.37 Since previous tracing, no significant change noted DOCTOR: Leroy Griggs Interpretating Date/Time 07/12/2017 16:45:29
[2017-07-12] MEDS: RESP: ALBUTEROL 2.5 MG/3 ML NEB (SCH) INH ×2 (17:06→21:11)
--- NOTE | 2017-07-12 17:46 | PD.CONS ---
HPI Service [facility] Consult Requested By CANDIDA Brooks Reason for Consult Medical management, abnormal Lexiscan Primary Care Physician No Primary Care Physician Diagnoses: History of Present Illness 56-year-old male with a past medical history significant for COPD, depression, tobacco and alcohol abuse who presents to the emergency department on 07/11. Patient reports that chest pain began yesterday around 3 in the afternoon while he was walking. He reports pain began in his right hand fingers and traveled up the arm and into his chest. He reports that pain initially began as pins and needles until reaching his chest where he describes pain as stabbing. He repots dizziness, diaphoresis, and nausea at the time of the incident. Does not repot any alleviating or aggravating factors. He repots that pain was eventually relieved when he came to the hospital, but is unable to remember when. He states he is a daily smoker, 1PPD, and drinks about 6-8beers daily. Repots testing on his heart done in [place], which involved going through the groin, but patient is unclear as to the specifics of the test. At the time of my examination patient is chest pain free, denies any SOB, cough, or right arm pain. He is resting comfortably in bed watching television. He is aware that he may need cardiac cath and will be NPO after midnight, requesting double portions of food for dinner. Patient is a poor historian. Review of Systems Except as stated in HPI: all other systems reviewed are Neg Past Family Social History Allergies: Coded Allergies: No Known Allergies (Unverified Adverse Reaction, Unknown, 07/11/17) Past Medical History COPD Depression Past Surgical History Hernia repair Reported Medications Reported Meds & Active Scripts Active No Active Prescriptions or Reported Medications Active Ordered Medications Current Medications Medications (Trade) Dose Ordered Sig/Geovanni Route Start Time Stop Time Status Last Admin (NS Flush) 2 ml UNSCH PRN IV FLUSH 07/12/17 00:45 (NS Flush) 2 ml BID IV FLUSH 07/12/17 09:00 07/12/17 12:24 (Tylenol) 500 mg Q4H PRN PO 07/12/17 07:45 (Zofran Inj) 4 mg Q6H PRN IV PUSH 07/12/17 07:45 (Nitrostat Sl) 0.4 mg Q5M PRN SL 07/12/17 07:45 (Aspirin) 325 mg DAILY PO 07/12/17 09:00 07/12/17 12:24 (Albuterol Neb) 2.5 mg Q2HR NEB PRN NEB 07/12/17 12:00 (Folate) 1 mg DAILY PO 07/12/17 16:00 07/17/17 15:59 (Vitamin B1) 100 mg DAILY PO 07/12/17 16:30 (Theragran M Tab) 1 tab DAILY PO 07/12/17 16:00 07/17/17 15:59 (Romazicon Inj) 0.2 mg Q1M PRN IV PUSH 07/12/17 16:00 (Ativan) 1 mg Q4H PRN PO 07/12/17 16:00 (Ativan Inj) 1 mg Q4H PRN IV PUSH 07/12/17 16:00 (Ativan) 2 mg Q2H PRN PO 07/12/17 16:00 (Ativan Inj) 2 mg Q2H PRN IV PUSH 07/12/17 16:00 (Ativan Inj) 2 mg Q1H PRN IV PUSH 07/12/17 16:00 (Ativan Inj) 2 mg Q15M PRN IV PUSH 07/12/17 16:00 (Lopressor) 12.5 mg Q12HR PO 07/12/17 21:00 (Nitroglycerin 2% Oint) 0.5 inch Q6HR TOPICAL 07/12/17 18:00 (Albuterol Neb) 2.5 mg Q6HR NEB INH 07/12/17 16:00 07/12/17 17:06 (Pill Splitter) 1 ea UNSCH PRN OTHER 07/12/17 16:30 Family History Mother: [place], diabetes Father: [place] Brother: Cancer Social History Tobacco: 1 pack per day Alcohol use: 6-8 beers daily, last drink yesterday Illicit drug use: Denies Patient is currently homeless Physical Exam Vital Signs Vital Signs Date Time Temp Pulse Resp B/P (MAP) Pulse Ox O2 Delivery O2 Flow Rate FiO2 07/12/17 16:32 99.2 60 122/60 (80) 96 07/12/17 12:33 98.2 60 20 120/76 (91) 98 07/12/17 08:24 98.2 73 18 129/83 (98) 98 07/12/17 08:02 98 21 07/12/17 08:00 78 07/12/17 04:04 78 07/12/17 02:02 98.1 76 16 97/60 (72) 96 07/12/17 01:37 07/11/17 23:14 84 15 109/72 (84) 99 Room Air 07/11/17 23:13 83 15 119/71 (87) 100 Room Air 07/11/17 23:12 15 100 Room Air 07/11/17 23:12 100 Room Air 07/11/17 20:11 98.1 89 16 129/73 (91) 98 Physical Exam GENERAL: This is a well-developed male who appears order than stated age. In NAD watching TV. SKIN: No rashes. Cool and dry. HEAD: Atraumatic. Normocephalic. EYES: Pupils equal round and reactive. No scleral icterus. No injection or drainage. ENT: Nose without bleeding, purulent drainage. Airway patent. NECK: Trachea midline. No JVD. CARDIOVASCULAR: Regular rate and rhythm without murmurs, gallops, or rubs. RESPIRATORY: Diminished breath sounds throughout. Breath sounds equal bilaterally. No wheezes, rales, or rhonchi. GASTROINTESTINAL: Abdomen soft, non-tender, nondistended. No guarding. Active bowel sounds in all quadrants. MUSCULOSKELETAL: Extremities without clubbing, cyanosis, or edema. No joint tenderness, effusion, or edema noted. No calf tenderness. NEUROLOGICAL: Awake and alert. Cranial nerves II through XII grossly intact. Motor and sensory grossly within normal limits. Five out of 5 muscle strength in all muscle groups. Normal speech. Laboratory Laboratory Tests Test 07/11/17 23:15 07/12/17 02:05 07/12/17 05:19 White Blood Count 9.0 Red Blood Count 4.58 Hemoglobin 14.2 Hematocrit 41.0 Mean Corpuscular Volume 89.7 Mean Corpuscular Hemoglobin 31.1 Mean Corpuscular Hemoglobin Concent 34.7 Red Cell Distribution Width 13.7 Platelet Count 198 Mean Platelet Volume 7.6 Neutrophils (%) (Auto) 62.2 Lymphocytes (%) (Auto) 28.8 Monocytes (%) (Auto) 7.3 Eosinophils (%) (Auto) 1.3 Basophils (%) (Auto) 0.4 Neutrophils # (Auto) 5.6 Lymphocytes # (Auto) 2.6 Monocytes # (Auto) 0.7 Eosinophils # (Auto) 0.1 Basophils # (Auto) 0.0 CBC Comment DIFF FINAL Differential Comment Prothrombin Time 10.0 Prothromb Time International Ratio 1.0 Activated Partial Thromboplast Time 24.5 Blood Urea Nitrogen 11 Creatinine 0.67 Random Glucose 85 Total Protein 7.5 Albumin 3.7 Calcium Level 8.4 Alkaline Phosphatase 63 Aspartate Amino Transf (AST/SGOT) 32 Alanine Aminotransferase (ALT/SGPT) 28 Total Bilirubin 0.6 Sodium Level 144 Potassium Level 3.6 Chloride Level 109 Carbon Dioxide Level 24.7 Anion Gap 10 Estimat Glomerular Filtration Rate 123 Total Creatine Kinase 178 160 144 Creatine Kinase MB 2.4 2.3 2.1 Troponin I LESS THAN 0.02 LESS THAN 0.02 LESS THAN 0.02 Result Diagram: 07/11/175 07/11/172314 Imaging Last Impressions Myocardial Perfusion Scan Nuc Med 07/12/17 0000 Signed Impressions: Service Date/Time: Wednesday, July 12, 2017 13:13 - CONCLUSION: 1. Small area of reversibility in the septum which may represent a small area of ischemia. 2. Normal wall motion with ejection fraction 60%%. RISK CATEGORY: Intermediate (1-3%% Annual Mortality Rate) Andrews George MD Chest X-Ray 07/11/171 Signed Impressions: Service Date/Time: Tuesday, July 11, 2017 23:18 - CONCLUSION: No acute cardiopulmonary disease identified. Shay Hough MD Assessment and Plan Assessment and Plan 56-year-old male with past medical history of COPD, depression, tobacco and alcohol abuse who presents to ED with complaints of chest pain. Atypical chest pain -Admitted to chest pain center for observation -Patient provided with ASA 324 in the ED yesterday, continue ASA 325 daily -Serial enzymes 3 negative. EKG #1 and #2: Normal sinus rhythm, #3 sinus rhythm with occasional ectopic premature complexes -Chest x-ray completed on 07/11 reviewed, negative -Lexiscan completed on 07/12 showing EF 60%, small area of reversibility in the septal wall which may represent a small area of ischemia. -(History of Lexiscan completed on 06/07/15 with no reversible defect seen to suggest ischemia) -Cardiology consult placed for further evaluation and possible intervention -Metoprolol 12.5 mg twice daily, nitroglycerin 0.5 inch every 6 hours -As needed sublingual nitro for chest pain -Hemodynamically stable -N.p.o. after midnight COPD Tobacco abuse -Smoking cessation encouraged. -Albuterol every 6 hours, as needed as needed Alcohol abuse -Discussed with patient the importance of alcohol cessation. Discussed signs and symptoms of delirium tremors - CIWA -Multivitamin and B1 -Seizure precautions DVT prophylaxis-SCD's Discussed with CANDIDA Brooks Marizsa ARNP Jul 12, 2017 17:46
[2017-07-12] MEDS: NITROGLYCERIN 2% OINT 1 GM PACKET TOPICAL SCH (20:08)
[2017-07-12] MEDS: MULTIVITAMINS/MINERALS THERAPEUTIC TAB PO SCH (20:09)
[2017-07-12] MEDS: THIAMINE HCL 100 MG TAB PO SCH (20:09)
[2017-07-12] MEDS: FOLIC ACID 1 MG TAB PO SCH (20:09)
[2017-07-12] MEDS: METOPROLOL TARTRATE 25 MG TAB PO SCH (22:12)
[2017-07-13] MEDS: NITROGLYCERIN 2% OINT 1 GM PACKET TOPICAL SCH ×2 (00:04→05:42)
[2017-07-13 01:09] VITALS: BP 113/67; PULSE 65; RESP 16; TEMP 98.6; O2SAT 98
[2017-07-13 03:55] VITALS: PULSE 50
[2017-07-13] MEDS: RESP: ALBUTEROL 2.5 MG/3 ML NEB (SCH) INH ×2 (04:00→09:15)
[2017-07-13 04:08] VITALS: BP 115/57; PULSE 63; RESP 18; TEMP 98.1; O2SAT 96
--- NOTE | 2017-07-13 07:58 | PD.CONS ---
HPI Consult Requested By Primary Care Physician No Primary Care Physician History of Present Illness 55-year-old male with a past medical history of COPD, depression, substance abuse who presented for chest pain. The patient states that prior to admission he was walking felt some right arm numbness and then a sudden onset of severe chest discomfort. He called 911, states the chest discomfort was improved with medications he received in the ED. No recurrence of chest discomfort throughout admission. He states that he has been having chest discomfort since he was 19. He states he gets episodes like this about every other month. He reports a normal heart catheterization in [place] 3 or 4 years ago and had a negative stress test here in 2016. The patient was admitted to the chest pain center and ruled out with unremarkable serial cardiac enzymes and EKGs, however due to his risk factor regarding strong family history of heart disease and tobacco use a Lexiscan stress test was done which showed a small area reversibility in the septum suggesting ischemia. Review of Systems Negative except as stated in HPI Past Family Social History Allergies: Coded Allergies: No Known Allergies (Unverified Adverse Reaction, Unknown, 07/11/17) Past Medical History COPD Depression Past Surgical History Hernia repair Reported Medications Reported Meds & Active Scripts Active No Active Prescriptions or Reported Medications Active Ordered Medications Current Medications Medications (Trade) Dose Ordered Sig/Geovanni Route Start Time Stop Time Status Last Admin (NS Flush) 2 ml UNSCH PRN IV FLUSH 07/12/17 00:45 (NS Flush) 2 ml BID IV FLUSH 07/12/17 09:00 07/12/17 22:13 (Tylenol) 500 mg Q4H PRN PO 07/12/17 07:45 (Zofran Inj) 4 mg Q6H PRN IV PUSH 07/12/17 07:45 (Nitrostat Sl) 0.4 mg Q5M PRN SL 07/12/17 07:45 (Aspirin) 325 mg DAILY PO 07/12/17 09:00 07/12/17 12:24 (Albuterol Neb) 2.5 mg Q2HR NEB PRN NEB 07/12/17 12:00 (Folate) 1 mg DAILY PO 07/12/17 16:00 07/17/17 15:59 07/12/17 20:09 (Vitamin B1) 100 mg DAILY PO 07/12/17 16:30 07/12/17 20:09 (Theragran M Tab) 1 tab DAILY PO 07/12/17 16:00 07/17/17 15:59 07/12/17 20:09 (Romazicon Inj) 0.2 mg Q1M PRN IV PUSH 07/12/17 16:00 (Ativan) 1 mg Q4H PRN PO 07/12/17 16:00 (Ativan Inj) 1 mg Q4H PRN IV PUSH 07/12/17 16:00 (Ativan) 2 mg Q2H PRN PO 07/12/17 16:00 (Ativan Inj) 2 mg Q2H PRN IV PUSH 07/12/17 16:00 (Ativan Inj) 2 mg Q1H PRN IV PUSH 07/12/17 16:00 (Ativan Inj) 2 mg Q15M PRN IV PUSH 07/12/17 16:00 (Lopressor) 12.5 mg Q12HR PO 07/12/17 21:00 07/12/17 22:12 (Nitroglycerin 2% Oint) 0.5 inch Q6HR TOPICAL 07/12/17 18:00 07/13/17 05:42 (Albuterol Neb) 2.5 mg Q6HR NEB INH 07/12/17 16:00 07/12/17 21:11 (Pill Splitter) 1 ea UNSCH PRN OTHER 07/12/17 16:30 Family History Mother: [place], diabetes Father: [place] Brother: Cancer Social History Tobacco: 1 pack per day Alcohol use: 6-8 beers daily, last drink yesterday Illicit drug use: Denies Physical Exam Vital Signs Vital Signs Date Time Temp Pulse Resp B/P (MAP) Pulse Ox O2 Delivery O2 Flow Rate FiO2 07/13/17 04:08 98.1 63 18 115/57 (76) 96 07/13/17 03:55 50 07/13/17 01:09 98.6 65 16 113/67 (82) 98 07/12/17 20:21 98.3 68 16 124/72 (89) 97 07/12/17 20:00 99 07/12/17 16:32 99.2 60 122/60 (80) 96 07/12/17 12:33 98.2 60 20 120/76 (91) 98 07/12/17 08:24 98.2 73 18 129/83 (98) 98 07/12/17 08:02 98 21 07/12/17 08:00 70 07/12/17 08:00 78 Physical Exam GENERAL: Well-developed well-nourished. In no acute distress. NECK: No carotid bruits. No JVD. CARDIOVASCULAR: Regular rate and rhythm. No murmur appreciated. RESPIRATORY: No accessory muscle use. Clear to auscultation. Breath sounds equal bilaterally. MUSCULOSKELETAL: No clubbing or cyanosis. No edema. NEUROLOGICAL: Awake and alert. Normal speech. Result Diagram: 07/11/17 2315 07/11/175 Imaging Last Impressions Myocardial Perfusion Scan Nuc Med 07/12/17 0000 Signed Impressions: Service Date/Time: Wednesday, July 12, 2017 13:13 - CONCLUSION: 1. Small area of reversibility in the septum which may represent a small area of ischemia. 2. Normal wall motion with ejection fraction 60%%. RISK CATEGORY: Intermediate (1-3%% Annual Mortality Rate) Andrews George MD Chest X-Ray 07/11/17 8085 Signed Impressions: Service Date/Time: Tuesday, July 11, 2017 23:18 - CONCLUSION: No acute cardiopulmonary disease identified. Shay Hough MD Assessment and Plan Assessment and Plan 55-year-old male with a past medical history of COPD, depression, substance abuse who presented for chest pain. Was admitted to the chest pain center and had a positive stress test. Atypical chest pain with positive stress test: Plan for cardiac catheterization today for definitive evaluation. Gold Dumont Jul 13, 2017 07:58
[2017-07-13 08:00] VITALS: BP 143/72; PULSE 60; RESP 16; TEMP 97.8; O2SAT 97
[2017-07-13] MEDS: METOPROLOL TARTRATE 25 MG TAB PO SCH (08:51)
[2017-07-13] MEDS: FOLIC ACID 1 MG TAB PO SCH (08:51)
[2017-07-13] MEDS: THIAMINE HCL 100 MG TAB PO SCH (08:51)
[2017-07-13] MEDS: ASPIRIN 325 MG TAB PO SCH (08:51)
[2017-07-13] MEDS: MULTIVITAMINS/MINERALS THERAPEUTIC TAB PO SCH (08:51)
[2017-07-13] MEDS: SODIUM CHLORIDE 0.9% FLUSH 10 ML FLUSH IV FLUSH SCH (08:51)
--- NOTE | 2017-07-13 09:08 | HHI.PR ---
Subjective Remarks Follow-up for chest pain and abnormal nuclear stress test. Patient denies any further episodes of chest pain overnight. Denies any other medical complaints including no shortness of breath, palpitations, nausea/vomiting, diaphoresis, or fevers/chills. He is going for heart catheterization today. He believes he may have had cardiac catheterization a few years ago in [place], was told that there were some blockages but did not require any angioplasty/stenting. The patient does continue to smoke tobacco. Objective Vitals Vital Signs Date Time Temp Pulse Resp B/P (MAP) Pulse Ox O2 Delivery O2 Flow Rate FiO2 07/13/17 08:00 97.8 60 16 143/72 (95) 97 07/13/17 04:08 98.1 63 18 115/57 (76) 96 07/13/17 03:55 50 07/13/17 01:09 98.6 65 16 113/67 (82) 98 07/12/17 20:21 98.3 68 16 124/72 (89) 97 07/12/17 20:00 99 07/12/17 16:32 99.2 60 122/60 (80) 96 07/12/17 12:33 98.2 60 20 120/76 (91) 98 I/O 07/12/17 07/12/17 07/12/17 07/13/17 07/13/17 07/13/17 07:00 15:00 23:00 07:00 15:00 23:00 Intake Total 950 ml Balance 950 ml Intake Oral 950 ml Result Diagram: 07/11/175 07/11/172314 Imaging Last Impressions Myocardial Perfusion Scan Nuc Med 07/12/17 0000 Signed Impressions: Service Date/Time: Wednesday, July 12, 2017 13:13 - CONCLUSION: 1. Small area of reversibility in the septum which may represent a small area of ischemia. 2. Normal wall motion with ejection fraction 60%%. RISK CATEGORY: Intermediate (1-3%% Annual Mortality Rate) Andrews George MD Chest X-Ray 07/11/174 Signed Impressions: Service Date/Time: Tuesday, July 11, 2017 23:18 - CONCLUSION: No acute cardiopulmonary disease identified. Shay Hough MD Objective Remarks GENERAL: Well-nourished, well-developed middle-aged male patient in NAD. SKIN: Warm and dry. No rash. HEENT: Normocephalic. Atraumatic.Pupils equal and round. Mucous membranes pink and moist. NECK: Trachea midline. CARDIOVASCULAR: Regular rate and rhythm. No murmur appreciated. RESPIRATORY: No accessory muscle use. Clear to auscultation. Breath sounds equal bilaterally. GASTROINTESTINAL: Abdomen soft, non-tender, nondistended. Normoactive bowel sounds x4. MUSCULOSKELETAL: No obvious deformities. Extremities without clubbing, cyanosis , or edema. NEUROLOGICAL: Awake and alert. No obvious cranial nerve deficits. Motor grossly within normal limits. Normal speech. PSYCHIATRIC: Appropriate mood and affect; insight and judgment normal. Procedures 07/13/17 - Cardiac catheterization by Dr. Ramirez Medications and IVs Current Medications Medications (Trade) Dose Ordered Sig/Geovanni Route Start Time Stop Time Status Last Admin (NS Flush) 2 ml UNSCH PRN IV FLUSH 07/12/17 00:45 (NS Flush) 2 ml BID IV FLUSH 07/12/17 09:00 07/13/17 08:51 (Tylenol) 500 mg Q4H PRN PO 07/12/17 07:45 (Zofran Inj) 4 mg Q6H PRN IV PUSH 07/12/17 07:45 (Nitrostat Sl) 0.4 mg Q5M PRN SL 07/12/17 07:45 (Aspirin) 325 mg DAILY PO 07/12/17 09:00 07/13/17 08:51 (Albuterol Neb) 2.5 mg Q2HR NEB PRN NEB 07/12/17 12:00 (Folate) 1 mg DAILY PO 07/12/17 16:00 07/17/17 15:59 07/13/17 08:51 (Vitamin B1) 100 mg DAILY PO 07/12/17 16:30 07/13/17 08:51 (Theragran M Tab) 1 tab DAILY PO 07/12/17 16:00 07/17/17 15:59 07/13/17 08:51 (Romazicon Inj) 0.2 mg Q1M PRN IV PUSH 07/12/17 16:00 (Ativan) 1 mg Q4H PRN PO 07/12/17 16:00 (Ativan Inj) 1 mg Q4H PRN IV PUSH 07/12/17 16:00 (Ativan) 2 mg Q2H PRN PO 07/12/17 16:00 (Ativan Inj) 2 mg Q2H PRN IV PUSH 07/12/17 16:00 (Ativan Inj) 2 mg Q1H PRN IV PUSH 07/12/17 16:00 (Ativan Inj) 2 mg Q15M PRN IV PUSH 07/12/17 16:00 (Lopressor) 12.5 mg Q12HR PO 07/12/17 21:00 07/13/17 08:51 (Nitroglycerin 2% Oint) 0.5 inch Q6HR TOPICAL 07/12/17 18:00 07/13/17 05:42 (Albuterol Neb) 2.5 mg Q6HR NEB INH 07/12/17 16:00 07/13/17 09:15 (Pill Splitter) 1 ea UNSCH PRN OTHER 07/12/17 16:30 A/P Assessment and Plan 56-year-old male with past medical history of COPD, depression, tobacco and alcohol abuse who presents to ED with complaints of chest pain. Atypical chest pain: Initially admitted to chest pain center, ACS ruled out with negative serial cardiac enzymes x3 and EKG without acute ischemic changes; however nuclear stress test showed small area of reversibility in the septal wall, may represent area of ischemia. Patient admitted to hospitalist under observation with cardiology consult. -Continue aspirin, beta felix, nitroglycerin prn -Chest x-ray completed on 07/11 reviewed, negative -Lexiscan completed on 07/12 showing EF 60%, small area of reversibility in the septal wall which may represent a small area of ischemia. -Cardiology consulted, plans for cardiac catheterization today COPD, Tobacco abuse: does not appear to be in exacerbation, O2 sat stable on room air -Smoking cessation encouraged. -Continue Albuterol every 6 hours, as needed Alcohol abuse -Counseled on alcohol cessation. - [facility] protocol -Thiamine/folate/multivitamin -Seizure precautions DVT prophylaxis-SCD's Discharge Planning Going for cardiac catheterization, further disposition to follow. Will discharge if cleared by cardiology. 1205hrs: Patient underwent cardiac catheterization, cleared for discharge by Dr. Ramirez, recommended aspirin and statin. The patient will be discharged home. Discharge patient to home Condition on discharge: Stable Heart Healthy Diet as tolerated Ad Irena activity Rx written: aspirin 81mg daily, lipitor 20mg hs, metoprolol 12.5mg bid Follow-up with primary care physician and cardiology Belgica Peres PA-C Jul 13, 2017 9:08 am
[2017-07-13] MEDS ORDERED: HEPARIN-NS/PF FLUSH BAG 2,000 ML IV FLUSH ONE (11:02)
[2017-07-13] MEDS ORDERED: HEPARIN SODIUM - IV 10,000 UNITS/10 ML VIAL ONE (11:03)
[2017-07-13] MEDS ORDERED: VERAPAMIL HCL 5 MG/2 ML VIAL ONE (11:03)
[2017-07-13] MEDS ORDERED: MIDAZOLAM HCL 2 MG/2 ML VIAL ONE (11:03)
[2017-07-13] MEDS ORDERED: LIDOCAINE HCL 1% PF 30 ML VIAL ONE (11:20)
[2017-07-13] MEDS ORDERED: MISC INFORMATION XX ONE (12:00)
[2017-07-13] MEDS ORDERED: METO25TA3 PO (12:02)
[2017-07-13] MEDS ORDERED: THIA100 PO (12:02)
[2017-07-13] MEDS ORDERED: ECASA81 PO (12:02)
[2017-07-13] MEDS ORDERED: ATOR20TA15 PO (12:02)
--- NOTE | 2017-07-13 12:05 | HHI.DCPOC ---
Discharge Care Plan Diagnosis: (1) Chest pain (2) Alcohol dependence (3) Tobacco abuse (4) COPD (chronic obstructive pulmonary disease) Goals to Promote Your Health * To prevent worsening of your condition and complications * To maintain your health at the optimal level Directions to Meet Your Goals Take your medications as prescribed Follow your dietary instruction Follow activity as directed Keep your appointments as scheduled Take your immunizations and boosters as scheduled If your symptoms worsen call your PCP, if no PCP go to Urgent Care Center or Emergency Room Smoking is Dangerous to Your Health. Avoid second hand smoke Call the 24-hour hour crisis hotline for domestic abuse at Belgica Peres PA-C Jul 13, 2017 12:05
--- NOTE | 2017-07-13 12:08 | MA ---
cc: Wild Ramirez MD DATE: 07/13/2017 INDICATION: Chest pain. PROCEDURES PERFORMED: 1. Fluoroscopy with interpretation. 2. Left heart catheterization. 3. Coronary angiography. METHOD: Risks, benefits and alternatives discussed with the patient. The patient understood and consented to procedure. The patient brought to catheterization lab. Patient placed on the catheterization table. Right wrist was prepped and draped in a sterile fashion. Right wrist anesthetized with 2% lidocaine. Right radial artery was cannulated and a 6 Luxembourgish 7 cm sheath was placed without difficulty. CORONARY ANGIOGRAPHY: 1. Left main coronary is angiographically normal. 2. Left anterior descending coronary artery is angiographically normal. There is a small to moderate sized diagonal branch with about a 40% ostial stenosis. 3. Left circumflex has some mild obtuse marginal branch disease, 30%. 4. Right coronary has 30% stenosis in the proximal mid segment and is tortuous with an anterior takeoff. LEFT HEART CATHETERIZATION: Intraventricular hemodynamics measured at 110/10 mmHg. CONCLUSIONS: 1. Mild nonobstructive coronary disease. 2. Normal left-sided filling pressures. PLAN: We will start the patient on aspirin and statin, but symptoms do not appear to be obstructive coronary disease. The patient is okay for discharge. Follow up with primary care physician. Wild Ramirez MD BHARTI/SB , 11:52 AM , 12:06 PM
--- NOTE | 2017-07-13 12:33 | CATHPROC ---
[employer] [facility] HIS Report Study Information Study Number Admission Scheduled Start Study Start [id number] Jul 12 2017 12:37AM 07/13/2017 Jul 13 2017 10:51AM [place] [facility] Cardiac Catheterization Admit Source Facility Department Emergency department [facility] Physician and Clinical Staff Initial Wild Burroughs Commercial Loan Collection Officer Alex Loyd,RN Commercial Loan Collection Officer Alex Aggarwal,RN Recorder Melonie Denise BSN Scrub Anais Foley RT(R) Procedures Performed Procedure Location (Site) Vessel Name Coronary Angiograms LCA Left Coronary Coronary Angiograms RCA Right Coronary L Heart Cath Equipment Time Software Sales Description Size Mfg Part Number Used/Scraped TRANSDUCER, TRUWAVE [id number] 11:31 [employer] LAWS * Used W/STOCKCOCK *[id number] *[id number] 11:31 [employer] INDUSTRIES PACK, CCL CUSTOM * Used *[id number] 11:31 [employer] SUPPORT, ARTERIAL ADULT 28419 *[id number] Used [id number] 11:31 [employer] PACER PEN, SKIN DUAL W/ RULER * Used *[id number] 11:08 [employer] JR 5.0 DXTERITY CATHETER fr 5 [id number] Used BAND, RADIAL COMPRESSION TR [id number] 11:53 m2fx 24CM Used SHORT 24 *[id number] SHEATH, FR6 RADIAL PRELUDE 11:31 m2fx FR 6 [id number] Used EASE 11CM [id number] 11:31 m2fx WIRE, EXCHANGE 260CM 3MMJ 260CM Used *[id number] 11:31 [employer] OMNIPAQUE, 350 MG, 150ML 150ML [id number] Used [id number] 11:31 [employer] BLANKET,WARM AIR CCL * Used *[id number] Equipment Model, Serial, Lot Number and Expiration Data Description Model Number Serial Number Lot Number Expiration Date JR 5.0 DXTERITY CATHETER [id number] 10-10-2019 History: Current Medications Medication Dosage/Unit Route Frequency Last Date/Time Taken LOPRESSOR 12.5 07/13/2017 ASA 325 07/13/2017 History: Allergies Allergy Reaction No Known Allergies History: Risk Factors Family History of Hypertension Dyslipidemia Previous [place] Previous Heart Failure Premature CAD No No Yes No No Prior Valve Prior PCI Prior PCIDate Prior CABG Surgery No Yes 04/07/2014 No Cerebrovascular Peripheral Artery Chronic Lung On Dialysis Diabetes Disease Disease Disease No No No Yes No History: Risk Factors Selection Items Current Smoker History: Stress Tests Stress or Imaging Studies Performed Yes Standard Exercise Stress Stress Test Result Test Yes Negative Stress Echo No Stress Test SPECT Stress Test SPECT Result Stress Test SPECT Ischemia Risk/Extent Yes Positive Intermediate Stress Test CMR No Cardiac CTA Coronary Calcium Score No No History: [place]/CV Data Previous Cath Date 04/07/2014 History: Other Current Smoker Method Packs a Day Years Used Pack Years Yes Cigarettes 1 37 37 Labs Hgb (g/dl) Hct (%) WBC (l/cumm) Platelets (thousands) 11.60-17.00 35.00-51.00 4.00-11.00 150.00-450.00 14.2 41 9 198 Glucose (mg/dl) BUN (mg/dl) Creatinine (mg/dl) BUN:Creatinine (1:x) 74.00-106.00 7.00-18.00 0.50-1.30 10.00-20.00 85 11 0.6 18.3 Na (meq/l) K (meq/l) 136.00-145.00 3.50-5.10 144 3.6 INR (PTT:PT) 0.90-1.10 1 Troponin I (ng/ml) CPK (u/l) CPK-MB (ng/ML) 0.02-0.05 26.00-308.00 0.50-3.60 0.02 178 2.4 Medication Medication Total Dose (Bolus/Oral) Medication Total Dosage/Unit 1% XYLOCAINE 20 mL FENTANYL 50 mcg HEPARIN 3000 units NTG (IC) 200 mcg VERSED 2 mg Medications (Bolus/Oral) Medication Time Given Dosage/Unit Administered By Reason VERSED 07/13/2017 11:36:47 AM 2 mg Alessia, Alex 2 mg VERSED given in lab by Alex Aggarwal RN in Left Antecubital via Peripheral IV. Ordered by Wild Ramirez. 1% XYLOCAINE 07/13/2017 11:37:25 AM 20 mL Alessia, Alex 20 mL 1% XYLOCAINE given in lab by Alex Aggarwal RN in Right Wrist via Subcutaneous. Ordered by Widl Ramirez. FENTANYL 07/13/2017 11:37:39 AM 50 mcg Alessia, Alex 50 mcg FENTANYL given in lab by Alex Aggarwal RN in Left Antecubital via Peripheral IV. Ordered by Wild Miller. NTG (IC) 07/13/2017 11:40:14 AM 200 mcg Alex Aggarwal 200 mcg NTG (IC) given in lab by Alex Aggarwal RN in Right Radial via Intra-arterial. Ordered by Wild Schwab. HEPARIN 07/13/2017 11:46:40 AM 3000 units Alex Aggarwal 3000 units HEPARIN given in lab by Alex Aggarawl RN in Left Antecubital via Peripheral IV. Ordered by Wild Ramirez. Medication (Drip) Medication Time Given Dosage/Unit Concentration/Unit Diluent (ml) Solution IV Solutions 07/13/2017 11:04:21 AM 50 mL (IV) NaCl .9 IV Solutions given in lab by Alex Loyd RN in Left Antecubital via Peripheral IV. Pump/Drip Flow using NaCl .9 at kvo. Ordered by Wild Ramirez. Initial Case Assessment Cardiovascular HR Rhythm NIBP Chest Pain 63 sr 135/87 0 Edema Present Skin color Skin None Normal Warm Dry Circulatory - Right Pulses Dorsalis Pedis Femoral Radial 2 2 2 Scale (0,1,2,3,4,d) Scale (0,1,2,3,4,d) Neurological State Oriented to time-place- Alert Moves all extremities person Respiration - General Respiration Rate SpO2 (%) O2 (lpm) (B/min) 20 100 0 Final Case Assessment Cardiovascular NIBP Chest Pain 127/94 0 Edema Present Skin color Skin None Normal Warm Dry Circulatory - Right Pulses Dorsalis Pedis Femoral Radial 2 2 2 Scale (0,1,2,3,4,d) Scale (0,1,2,3,4,d) Neurological State Oriented to time-place- Alert Moves all extremities person Respiration - General SpO2 (%) 98 Chronological Log Time Study Chronological Log 11:02:14 Patient arrived via Bed. 11:02:15 Patient Name, D.O.B, / Armband Verified By R.N. 11:02:17 Consent signed by the physician and the patient and verified by the [facility] staff. 11:02:23 Patient has been NPO for More than 6Hrs. 11:02:32 Skin Breakdown- none per patient 11:03:14 Allens test performed on the right radial and ulnar artery. 11:03:29 A # 18 IV was noted in the Antecubital (left). Grade = 0 IV Solutions given in lab by Alex Loyd, RN in Left Antecubital via Peripheral IV. Pump/Drip Flow using NaCl .9 at kvo. 11:04:21 Ordered by Wild Ramirez. 11:04:45 History and physical on the chart or being dictated. 11:04:49 Verbal Stimulation=2 Physical Stimulation=2 Airway=2 Respiration=2 TOTAL=8. (0=absent, 1=li mited, 2=present) Vitals capture started with the following parameters, Patient=Adult, Interval=5 min, Initial Pr xyogza=915 mmHg, 11:15:31 Deflation Rate=5 mmHg, Cuff placed on Left Arm Assessment: Initial Case, HR=63 BPM, Rhythm=sr, QMDY=562/87 mmhg, Chest Pain=0, Edema=None, Col or=Normal, Skin = Warm, Dry 11:15:41 Right Pulses: Gerardo Ped=2, Femoral=2, Radial=2 Neurological: State=Alert, Ox3, LEWIS Respiration: Resp=20 B/min, BqX5=223 %, O2=0 lpm 11:16:08 HR=60 bpm, FGQF=894/87 mmhg, ErY0=900.0 %, Resp=20 B/min, Pain=0, Trudy=10, Gray=2 11:16:32 Right Radial and groin(s) prepped with 2% chlorhexidine, and draped after a 3 min. waiting time. 11:16:56 Reference ECG taken 11:17:25 paged 11:21:07 HR=58 bpm, EPLH=575/78 mmhg, AuF1=832.0 %, Resp=16 B/min, Pain=0, Trudy=10, Gray=2 11:26:06 HR=58 bpm, MYPC=363/79 mmhg, SpO2=99.0 %, Resp=16 B/min 11:27:04 Pressure channel 1 zeroed. 11:28:21 nenita relieved melonie 11:31:05 HR=64 bpm, SPDP=978/81 mmhg, OwU2=921 %, Resp=14 B/min 11:34:03 MD arrived. 11:36:06 HR=64 bpm, NTJR=940/84 mmhg, YtB3=152.0 %, Resp=20 B/min 11:36:47 2 mg VERSED given in lab by Alex Aggarwal RN in Left Antecubital via Peripheral IV. Ordered by Wild Ramirez. Time Out. Correct patient, correct procedure, correct physician, power injector not loaded with contrast with surgical 11:36:58 team present. Time Out Concurred by MD and individual staff in procedure. 11:37:22 Case Start 11:37:25 20 mL 1% XYLOCAINE given in lab by Alex Aggarwal RN in Right Wrist via Subcutaneous. Ordere d by Wild Ramirez. 11:37:39 50 mcg FENTANYL given in lab by Alex Aggarwal RN in Left Antecubital via Peripheral IV. Ord ered by Wild Ramirez. 11:38:02 Access site was Radial Artery. right A SHEATH, FR6 RADIAL PRELUDE EASE 11CM FR 6 was advanced into the Radial (right) using the Desirae fied Seldinger 11:39:52 technique. 11:40:14 200 mcg NTG (IC) given in lab by Alex Aggarwal RN in Right Radial via Intra-arterial. Order ed by Wild Ramirez. 11:41:07 HR=74 bpm, RUVQ=937/81 mmhg, Resp=14 B/min 11:41:31 In the Radial (right) the SHEATH, FR6 RADIAL PRELUDE EASE 11CM FR [address] by Wild Ramirez. A JR 5.0 DXTERITY CATHETER fr 5 was advanced over a wire. OMNIPAQUE, 350 MG, 150ML 150ML was us ed for 11:42:02 injections. Recorded Pressure: LV, HR=79, Condition=Condition 1 11:42:35 (Left Ventricle) LV 106/2/7 Recorded Pressure: LV, Ao, HR=75, Condition=Condition 1 11:42:46 (Left Ventricle) LV 109/1/5, (Aorta) Ao 106/81/93 11:42:56 The RCA was injected and visualized at various angles. OMNIPAQUE, 350 MG, 150ML 150ML used . After removing the current catheter a JL 3.5 INFINITI CATHETER FR 5 was advanced over a WIRE, E XCHANGE 260CM 11:43:43 3MMJ 260CM. 11:45:43 The LCA was injected and visualized at various angles. OMNIPAQUE, 350 MG, 150ML 150ML used . Recorded Pressure: Ao, HR=67, Condition=Condition 1 11:45:53 (Aorta) Ao 111/72/89 11:46:06 HR=71 bpm, UWHE=991/71 mmhg, SpO2=96.0 %, Resp=12 B/min 11:46:40 3000 units HEPARIN given in lab by Alex Aggarwal, RN in Left Antecubital via Peripheral IV. Ordered by Wild Ramirez. 11:47:12 Case End 11:47:32 Catheter was removed 11:49:37 suture removed by Anais 11:51:36 HR=86 bpm, EEUI=718/94 mmhg, SpO2=99.0 %, Resp=15 B/min 11:51:54 Vitals capture stopped. 11:51:59 Sheath removed; pressure applied to access site. Radial Compression Device Used. 11 mLs of air placed in BAND, RADIAL COMPRESSION TR SHORT 24 2 4CM. Affected 11:52:02 hand 99 % O2 saturation. Assessment: Final Case, UIOE=587/94 mmhg, Chest Pain=0, Edema=None, Color=Normal, Skin = Warm, Dry Right Pulses: Gerardo Ped=2, Femoral=2, Radial=2 11:53:04 Neurological: State=Alert, Ox3, LEWIS Respiration: SpO2=98 % 11:54:21 Sterile dressing applied to site 11:54:23 No case complications noted. 11:54:29 Bedside Report will be given. 11:54:33 A Left Heart Cath was performed. 11:55:56 Patient moved to stretcher 11:56:33 Patient transported to DOCU End Study - Contrast Media Used In Study Contrast Total Opened (mL) Total Used (mL) Total Wasted (mL) Omnipaque 40 40 0 End Study - Maximum Contrast Load Max Contrast Load (mL) 587.5 End Study - Radiation Exposure Fluoro Time (minutes) 0.9 End Study - Sheaths Sheaths Pulled By Sheath Hold Time (min) Anais Foley End Study - Patient Disposition Complications Transferred To Interventional Outcome No Telemetry Bed No attempt made
[2017-07-13] MEDS ORDERED: ATORVASTATIN 20 MG TAB PO SCH (21:00)
[2017-07-14] MEDS ORDERED: ASPIRIN EC 81 MG TABEC PO SCH (09:00)
== END 2017-07-13 15:13 | disposition home or self-care (01) ==
LOC: NEPC 20:07 → NEDA 07-12 00:37 → NEPHCDU 07-12 01:33 → HCIS 07-13 11:00
PROVIDERS: ADMIT Hospitalist; ATTEND Hospitalist
DX: R07.89 Other chest pain (principal); I25.10 Atherosclerotic heart disease of native coronary artery without angina pectoris; R07.2 Precordial pain; J44.9 Chronic obstructive pulmonary disease, unspecified; F17.210 Nicotine dependence, cigarettes, uncomplicated; F10.20 Alcohol dependence, uncomplicated; R11.2 Nausea with vomiting, unspecified; R06.00 Dyspnea, unspecified; F32.9 Major depressive disorder, single episode, unspecified; F90.9 Attention-deficit hyperactivity disorder, unspecified type; F41.9 Anxiety disorder, unspecified; Z59.0 Homelessness
CPT/HCPCS: 71045; 78452; 80053; 82550; 82552; 82948; 84484; 85025; 85610; 85730; 93005; 93017; 93458; 94640; 94664; 99152; 99285; A9502; C1769; C1893; G0378; J1644; J2250; J2785; J3010; J7613; Q9967

== ENCOUNTER 2017-09-10 20:50 | Emergency (ER) | payer OTHER ==
[~2017-09-10 20:50] MED LIST changes: +ATOR20TA15 PO; +ECASA81 PO; -IBUP-232 PO; +METO25TA3 PO; -OMEP20TA93 PO; +THIA100 PO; -VENTAER INH
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
[2017-09-10 22:23] VITALS: BP 100/58; PULSE 84; RESP 18; O2SAT 96
[2017-09-10 23:13] LABS: AUTOMATED NEUTROPHIL # 4.6 TH/MM3 (1.8-7.7); BASOPHIL % 0.4 % (0.0-2.0); EOSINOPHIL # 0.1 TH/MM3 (0-0.4); EOSINOPHIL % 1.4 % (0.0-4.0); HEMATOCRIT 36.7 % (39.0-51.0); HEMOGLOBIN 12.8 GM/DL (13.0-17.0); LYMPH % 32.3 % (9.0-44.0); LYMPHOCYTE # 2.5 TH/MM3 (1.0-4.8); MEAN CELL VOLUME 92.5 FL (80.0-100.0); MEAN CORPUSCULAR HEMOGLOBIN 32.3 PG (27.0-34.0); MEAN CORPUSCULAR HGB CONC 34.9 % (32.0-36.0); MEAN PLATELET VOLUME 7.2 FL (7.0-11.0); MONO % 6.9 % (0.0-8.0); MONOCYTE # 0.5 TH/MM3 (0-0.9); PLATELET COUNT 246 TH/MM3 (150-450); RED BLOOD COUNT 3.96 MIL/MM3 (4.50-5.90); RED CELL DISTRIBUTION WIDTH 13.9 % (11.6-17.2); WHITE BLOOD COUNT 7.8 TH/MM3 (4.0-11.0)
[2017-09-10 23:45] LABS: ALBUMIN 3.5 GM/DL (3.4-5.0); ALKALINE PHOSPHATASE 62 U/L (45-117); ALT (GPT) 31 U/L (12-78); AST (GOT) 25 U/L (15-37); BLOOD UREA NITROGEN 14 MG/DL (7-18); CALCIUM 8.2 MG/DL (8.5-10.1); GLOMERULAR FILTRATION RATE 87 ML/MIN (>89); GLUCOSE,RANDOM 130 MG/DL (74-106); TOTAL PROTEIN 7.2 GM/DL (6.4-8.2)
[2017-09-10 23:46] LABS: ACETAMINOPHEN LESS THAN 2.0 MCG/ML (10.0-30.0); BICARBONATE 25.1 MEQ/L (21.0-32.0); CHLORIDE 109 MEQ/L (98-107); SODIUM (NA) 146 MEQ/L (136-145); TOTAL BILIRUBIN ADULT 0.4 MG/DL (0.2-1.0)
[2017-09-11 02:15] VITALS: BP_SYST 105; BP_SYST 15; BP_DIAS 52; PULSE 80; RESP 17; O2SAT 97
[2017-09-11 06:28] VITALS: BP 94/63; PULSE 79; RESP 17; O2SAT 98
[2017-09-11 12:29] VITALS: BP 137/78; PULSE 68; RESP 16; TEMP 97.9; O2SAT 98
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
[2017-09-11] MEDS ORDERED: ONDANSETRON ODT 4 MG TAB PO ONE (13:30)
--- NOTE | 2017-09-11 14:44 | PD ---
Physical Exam Date Seen by Provider: Sep 11, 2017 Time Seen by Provider: 14:43 Narrative 57-year-old male previously medically cleared for psychiatric evaluation, has been seen by psychiatric staff and deemed stable for discharge at this time. Patient remains medically stable for discharge at this time. Follow-up will be based on psychiatric note. Data Data Last Documented VS Vital Signs Date Time Temp Pulse Resp B/P (MAP) Pulse Ox O2 Delivery O2 Flow Rate FiO2 09/11/17 12:29 97.9 68 16 137/78 (97) 98 Room Air Orders Orders Complete Blood Count With Diff (09/10/17 20:53) Comprehensive Metabolic Panel (09/10/17 20:53) Thyroid Stimulating Hormone (09/10/17 20:53) Psych Screen (09/10/17 20:53) Drug Screen, Random Urine (09/10/17 20:53) Alcohol (Ethanol) (09/10/17 20:53) Salicylates (Aspirin) (09/10/17 20:53) Tylenol (Acetaminophen) (09/10/17 20:53) Diet Regular Basic (09/11/17 Breakfast) Diet Regular Basic (09/11/17 Lunch) Ondansetron Odt (Zofran Odt) (09/11/17 13:30) Diet Regular Basic (09/11/17 Dinner) Labs Laboratory Tests Test 09/10/17 22:50 White Blood Count 7.8 TH/MM3 Red Blood Count 3.96 MIL/MM3 Hemoglobin 12.8 GM/DL Hematocrit 36.7 % Mean Corpuscular Volume 92.5 FL Mean Corpuscular Hemoglobin 32.3 PG Mean Corpuscular Hemoglobin Concent 34.9 % Red Cell Distribution Width 13.9 % Platelet Count 246 TH/MM3 Mean Platelet Volume 7.2 FL Neutrophils (%) (Auto) 59.0 % Lymphocytes (%) (Auto) 32.3 % Monocytes (%) (Auto) 6.9 % Eosinophils (%) (Auto) 1.4 % Basophils (%) (Auto) 0.4 % Neutrophils # (Auto) 4.6 TH/MM3 Lymphocytes # (Auto) 2.5 TH/MM3 Monocytes # (Auto) 0.5 TH/MM3 Eosinophils # (Auto) 0.1 TH/MM3 Basophils # (Auto) 0.0 TH/MM3 CBC Comment DIFF FINAL Differential Comment Blood Urea Nitrogen 14 MG/DL Creatinine 0.90 MG/DL Random Glucose 130 MG/DL Total Protein 7.2 GM/DL Albumin 3.5 GM/DL Calcium Level 8.2 MG/DL Alkaline Phosphatase 62 U/L Aspartate Amino Transf (AST/SGOT) 25 U/L Alanine Aminotransferase (ALT/SGPT) 31 U/L Total Bilirubin 0.4 MG/DL Sodium Level 146 MEQ/L Potassium Level 3.6 MEQ/L Chloride Level 109 MEQ/L Carbon Dioxide Level 25.1 MEQ/L Anion Gap 12 MEQ/L Estimat Glomerular Filtration Rate 87 ML/MIN Thyroid Stimulating Hormone 3rd Gen 1.160 uIU/ML Salicylates Level 2.3 MG/DL Acetaminophen Level LESS THAN 2.0 MCG/ML Ethyl Alcohol Level 279 MG/DL [facility] Medical Record Reviewed: Yes Supervised Visit with ANABELLA: Yes Narrative Course 57-year-old male previously medically cleared for psychiatric evaluation, has been seen by psychiatric staff and deemed stable for discharge at this time. Patient remains medically stable for discharge at this time. Follow-up will be based on psychiatric note. Diagnosis Primary Impression: Alcohol dependence Qualified Codes: F10.220 - Alcohol dependence with intoxication, uncomplicated Additional Impression: alcohol intoxication Referrals: [facility] as needed [facility] call for appointment Mental Health and Substance Abuse inpatient facility [facility] Patient Instructions: General Instructions, Alcohol Intoxication (ED), Alcohol Dependence (ED) Departure Forms: Tests/Procedures Additional Instruction: Follow up with Manish Verdin. Follow up with primary care doctor or [facility]. Stop drinking alcohol. Utilize local resources per packet provided. Return to ED for any worsening. Disposition: 01 DISCHARGE HOME Condition: Stable Liam Cooley Sep 11, 2017 14:44
== END 2017-09-11 15:10 | disposition home or self-care (01) ==
LOC: NEPJ 20:50
DX: F10.229 Alcohol dependence with intoxication, unspecified (principal); Y90.8 Blood alcohol level of 240 mg/100 ml or more; F90.9 Attention-deficit hyperactivity disorder, unspecified type; F31.9 Bipolar disorder, unspecified; F41.9 Anxiety disorder, unspecified; J44.9 Chronic obstructive pulmonary disease, unspecified; F17.200 Nicotine dependence, unspecified, uncomplicated; Z59.0 Homelessness; Z79.899 Other long term (current) drug therapy
CPT/HCPCS: 80053; 80307; 84443; 85025; 99284

== ENCOUNTER 2017-09-15 18:34 | Emergency (ER) | payer OTHER ==
[2017-09-15 18:57] VITALS: BP 120/65; PULSE 88; RESP 17; TEMP 98.3; O2SAT 99
[2017-09-15] MEDS ORDERED: PANTOPRAZOLE SODIUM 40 MG VIAL IV PUSH ONE (19:15)
[2017-09-15] MEDS ORDERED: NITROGLYCERIN 2% OINT 1 GM PACKET TOPICAL ONE (19:15)
[2017-09-15] MEDS ORDERED: SODIUM CHLORID 0.9% 500 ML INJ 500 ML IV ONE (19:15)
[2017-09-15] MEDS ORDERED: THIAMINE INJ 100 MG in SODIUM CHLORIDE 0.9% INJ 100 ML IV ONE (19:15)
[2017-09-15] MEDS ORDERED: ASPIRIN 81 MG CHEW TAB CHEW ONE (19:15)
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
--- NOTE | 2017-09-15 19:55 | RADRPT ---
EXAM DATE: 09/15/2017 7:52 PM EDT AGE/SEX: 57 years / Male INDICATIONS: Chest pain. CLINICAL DATA: This is the patient's initial encounter. Patient reports that signs and symptoms have been present for 1 day and indicates a pain score of 3/10. MEDICAL/SURGICAL HISTORY: Chronic obstructive pulmonary disease. Smoker. None. COMPARISON: [facility] [place], CHEST SINGLE AP, 07/11/2017. . FINDINGS: A single AP view of the chest demonstrates the lungs to be symmetrically aerated without evidence of mass, infiltrate or effusion. The cardiomediastinal contours are unremarkable. Osseous structures a re intact. CONCLUSION: Negative for acute disease Electronically signed by: Pepito Peterson MD 09/15/2017 7:53 PM EDT
[2017-09-15 20:16] LABS: AUTOMATED NEUTROPHIL # 3.2 TH/MM3 (1.8-7.7); BASOPHIL % 0.6 % (0.0-2.0); EOSINOPHIL # 0.1 TH/MM3 (0-0.4); EOSINOPHIL % 1.4 % (0.0-4.0); HEMOGLOBIN 13.2 GM/DL (13.0-17.0); LYMPH % 43.5 % (9.0-44.0); MEAN CELL VOLUME 94.3 FL (80.0-100.0); MEAN CORPUSCULAR HGB CONC 33.9 % (32.0-36.0); MEAN PLATELET VOLUME 7.2 FL (7.0-11.0); MONO % 8.1 % (0.0-8.0); MONOCYTE # 0.6 TH/MM3 (0-0.9); NEUT % 46.4 % (16.0-70.0); PLATELET COUNT 214 TH/MM3 (150-450); RED BLOOD COUNT 4.13 MIL/MM3 (4.50-5.90)
[2017-09-15 20:30] LABS: ALBUMIN 3.7 GM/DL (3.4-5.0); AST (GOT) 33 U/L (15-37); BICARBONATE 25.2 MEQ/L (21.0-32.0); BLOOD UREA NITROGEN 6 MG/DL (7-18); CALCIUM 8.1 MG/DL (8.5-10.1); CHLORIDE 112 MEQ/L (98-107); CREATININE 0.78 MG/DL (0.60-1.30); GLOMERULAR FILTRATION RATE 103 ML/MIN (>89); GLUCOSE,RANDOM 81 MG/DL (74-106); MAGNESIUM 2.2 MG/DL (1.5-2.5); SODIUM (NA) 146 MEQ/L (136-145)
[2017-09-15 20:33] VITALS: BP 120/77; PULSE 87; RESP 16; O2SAT 95
[2017-09-15 20:35] LABS: ALKALINE PHOSPHATASE 68 U/L (45-117); ALT (GPT) 37 U/L (12-78); TOTAL BILIRUBIN ADULT 0.4 MG/DL (0.2-1.0); TOTAL PROTEIN 7.5 GM/DL (6.4-8.2); TROPONIN I LESS THAN 0.02 NG/ML (0.02-0.05)
[2017-09-15 22:57] VITALS: BP 100/51; PULSE 70; RESP 16; O2SAT 97
[2017-09-16 04:20] VITALS: BP 92/50; PULSE 84; RESP 14; O2SAT 95
--- NOTE | 2017-09-16 09:12 | EKG ---
Date Performed: 09/15/2017 Time Performed: 18:05:17 PTAGE: 57 years EKG: Sinus rhythm NORMAL ECG PREVIOUS TRACING : 07/12/2017 05.22 DOCTOR: Wild Ramirez Interpretating Date/Time 09/16/2017 09:11:00
== END 2017-09-16 06:52 | disposition home or self-care (01) ==
LOC: NEPE 18:34
DX: R07.9 Chest pain, unspecified (principal); F10.229 Alcohol dependence with intoxication, unspecified; Y90.8 Blood alcohol level of 240 mg/100 ml or more; I10 Essential (primary) hypertension; I25.2 Old myocardial infarction; E78.5 Hyperlipidemia, unspecified; J44.9 Chronic obstructive pulmonary disease, unspecified; F31.9 Bipolar disorder, unspecified; F43.10 Post-traumatic stress disorder, unspecified; F17.210 Nicotine dependence, cigarettes, uncomplicated; Z59.0 Homelessness
CPT/HCPCS: 71045; 80053; 80307; 82550; 82552; 83690; 83735; 83880; 84484; 85025; 85610; 85730; 93005; 96374; 96375; 99285; C9113; J3411; J7040

== ENCOUNTER 2017-09-18 19:32 | Emergency (ER) | payer OTHER ==
[~2017-09-18] VITALS: Ht 165.1 cm; Wt 70.0 kg
[2017-09-18 19:38] VITALS: BP 121/73; PULSE 85; RESP 16; TEMP 97.3; O2SAT 98
[2017-09-18] MEDS ORDERED: HALOPERIDOL LACTATE 5 MG/ML AMP IV PUSH ONE (20:00)
[2017-09-18] MEDS ORDERED: diphenhydrAMINE HCL 50 MG/ML VIAL IV PUSH ONE (20:00)
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
[2017-09-19 00:48] VITALS: PULSE 78; RESP 16; O2SAT 97
[2017-09-19 02:14] VITALS: BP 99/62; PULSE 68; RESP 20; O2SAT 98
[2017-09-19 05:53] VITALS: BP 96/68
== END 2017-09-19 05:57 | disposition home or self-care (01) ==
LOC: PHED 19:32
DX: F10.129 Alcohol abuse with intoxication, unspecified (principal); Y90.8 Blood alcohol level of 240 mg/100 ml or more; F31.9 Bipolar disorder, unspecified; F41.9 Anxiety disorder, unspecified; J44.9 Chronic obstructive pulmonary disease, unspecified; F90.9 Attention-deficit hyperactivity disorder, unspecified type; F17.210 Nicotine dependence, cigarettes, uncomplicated
CPT/HCPCS: 80307; 96374; 96375; 99284; J1200; J1630